=== PATIENT | male | born 2000 | race Two or more races ===

== ENCOUNTER 2020-10-31 10:24 | Emergency (ER) | payer OTHER, SELFPAY ==
[2020-10-31 10:49] VITALS: BP 142/86; PULSE 78; RESP 14; TEMP 36.7; O2SAT 100; BMI 22.0
[2020-10-31 12:11] LABS: Strep A Nucleic Acid Negative (Negative)
--- NOTE | 2020-10-31 12:40 | ED_ITS ---
HPI - General Adult General Chief complaint: Dental/Oral Stated complaint: mouth issue Time Seen by Provider: 10/31/20 10:59 Source: patient Mode of arrival: ambulatory History of Present Illness HPI narrative: 20-year-old male with past medical history of asthma presenting to the ED complaining of red bumps/lesions to throat/tongue x2-3 days. Reports pain with swallowing. Denies difficulty or inability to swallow, fever, chills, recent travel, new sexual partners, concern history of STIs, cough, recent travel Related Data Previous Rx's Medication Instructions Recorded amoxicillin-pot clavulanate 1 tab PO Q12H 7 Days #14 tab 10/31/20 [Augmentin] Allergies Allergy/AdvReac Type Severity Reaction Status Date / Time No Known Allergies Allergy Unverified 03/03/20 18:25 Review of Systems Review of Systems: Constitutional: No Weight loss, No Fever, No Chills ENT/Mouth: No Ear Pain, No Nasal Congestion, No Hoarseness,+ sore throat, No Rhinorrhea, No Swallowing Difficulty Cardiovascular: No Chest Pain, No SOB Respiratory: No Cough, No Sputum, No Wheezing Gastrointestinal: No Nausea, No Vomiting, No Diarrhea, No Abdominal pain Musculoskeletal: No joint pain, No Myalgias Skin: No Skin Lesions, No rash Neuro: No Weakness Yes all other systems are reviewed and are negative PMFSH Past Medical History Attestation statement: The following information was validated with the patient. Medical History (Updated 10/31/20 @ 12:41 by EMMETT Dave) Asthma Social History Social History Smoked in Last 30 Days: No Use of substances other than those prescribed or required for medical reasons: Yes Substance Use Type: Marijuana Substance Use Frequency: Weekly Advance Directives: No Advance Directives Information Provided: No Physical Exam Vital Signs: Vital Signs: Last Vital Signs Temp 98.1 F 10/31/20 10:49 Pulse 78 10/31/20 10:49 Resp 14 10/31/20 10:49 BP 142/86 H 10/31/20 10:49 Pulse Ox 100 10/31/20 10:49 Body Mass Index 22.0 Const: General: cooperative, healthy appearing, comfortable and no acute distress Orientation/consciousness: patient oriented x3 Limitations: no limitations HENMT: Other: Multiple red lesions noted to hard palate and tongue c/w strawberry tongue. No tonsillar exudates. Uvula midline. Talking in complete sentences Head: Yes normal to inspection Ears: hearing grossly normal bilaterally and TM's normal bilaterally General nose exam: Normal external nose present Face and sinus: Yes normal facial exam Throat: Yes uvula midline Eyes: General: appearance normal, both eyes and all related structures EOM: EOMs intact bilaterally Neck: Neck: Yes normal visual inspection, Yes no lymphadenopathy and Yes no meningeal signs Resp: Effort & Inspection: normal respiratory effort, no grunting, not labored and no stridor Cardio: Rate: regular rate Heart sounds: S1 normal heart sound present and S2 normal heart sound present GI: Inspection: Yes normal to inspection Skin: Rashes: no rashes Wounds: no wounds Neuro: General: patient oriented x3 and no meningeal signs Gait exam (Nerissa ro): Normal gait present Extrem: General: Yes normal to inspection Medical Decision Making MDM Narrative Medical decision making narrative: On exam VSS, NAD/well appearing, afebrile. Oropharynx with multiple red lesions consistent with strawberry tongue or atypical strep pharyngitis or viral syndrome like Coxsackie or Kawasaki. Low concern for scarlet fever without fever. Unlikely herpes. Plan: COVID-19 testing, strep, herpes culture Lab Data Labs: Lab Results 10/31/20 10/31/20 Range/Units 11:36 12:43 Coronavirus (PCR) NEGATIVE (Negative) Influenza Type A (PCR) NEGATIVE (Negative) Influenza Type B (PCR) NEGATIVE (Negative) RSV RNA Qual (PCR) NEGATIVE (Negative) S. pyogenes GrpA TONY Negative (Negative) Discharge Plan Discharge Clinical Impression: Pharyngitis Qualifiers: Pharyngitis/tonsillitis etiology: unspecified etiology Qualified Code(s): J02.9 - Acute pharyngitis, unspecified Patient Disposition: Home, Self-Care Instructions: Pharyngitis (ED) Additional Instructions: Your rapid strep was negative, will however culture was sent will call you with positive cultures in a couple days You were swabbed for herpes, this culture takes a couple days come back as well, we will call you only for positive results You were tested for COVID-19/the flu/RSV today this result be back in a couple hours, I will call you with positive or negative results Augmentin is antibiotic, take as prescribed It is important that you follow-up with her primary care doctor Stay hydrated at home If symptoms persist or worsen, you have throat swelling, or pain is unbearable please return to the ED Prescriptions: New amoxicillin-pot clavulanate [Augmentin] 875-125 mg tablet 1 tab PO Q12H 7 Days Qty: 14 RF: 0 Referrals: Physician,None [Primary Care Provider] - 2 days Interventions: ED Discharge Assessment Last Done: 10/31/20 12:48 Discharge Date/Time: 10/31/20 12:48
[2020-10-31 13:48] LABS: Influenza A PCR NEGATIVE (Negative); Influenza B PCR NEGATIVE (Negative); Resp Syncy Virus RNA Qual PCR NEGATIVE (Negative); SARS COV2 PCR INHOUSE NEGATIVE (Negative)
== END 2020-10-31 12:48 | disposition home or self-care (01) ==
PROVIDERS: Physician Assistant; Emergency Provider Emergency Medicine
DX: J20.9 Acute bronchitis, unspecified (principal); Z20.2 Contact with and (suspected) exposure to infections with a predominantly sexual mode of transmission; Z20.822 Contact with and (suspected) exposure to COVID-19
CPT/HCPCS: 0241U; 36415; 87255; 87651; 99283

== ENCOUNTER 2021-01-22 11:06 | Emergency (ER) | payer OTHER, SELFPAY ==
--- NOTE | ~2021-01-22 | CT_ITS ---
EXAM: CT HEAD WITHOUT CONTRAST CT CERVICAL SPINE WITHOUT CONTRAST CT FACIAL BONES WITHOUT CONTRAST INDICATION: Reason for Exam right eye pain s/p head trauma TECHNIQUE: A noncontrast CT scan was performed from the skull base to the vertex. A noncontrast CT scan of the cervical spine was performed from the base of the skull through T1. A noncontrast CT scan was performed through the maxillofacial region. Coronal and sagittal reformats were obtained at the acquisition workstation. Dose length product is 1575 mGy-cm. COMPARISON: None FINDINGS: Head: No evidence of acute intracranial hemorrhage or extra-axial fluid collection. No evidence of mass lesion, mass effect or midline shift. No acute territorial infarction. Ventricles are symmetric in configuration and normal in size. The basal cisterns are patent. The calvarium is intact. Limited views of the paranasal sinuses are unremarkable. Mastoid air cells are well aerated and middle ear cavities are clear. Cervical Spine: Slight reversal of cervical lordosis, likely due to immobilization collar and/or muscular spasm. Cervical vertebral bodies are normal in height and alignment. Intervertebral disc spaces are preserved. Facet joints are anatomically aligned bilaterally. Spinous processes are intact and well aligned. The atlantodens articulation is unremarkable. The lateral masses of C1 and C2 are well aligned. There is incomplete atlantooccipital assimilation. The dens process is intact. No prevertebral soft tissue swelling. No bulky cervical adenopathy. Limited views of the thyroid gland are unremarkable. Facial bones: No facial fractures are identified. The paranasal sinuses are well aerated. No mastoid air cell effusions. Middle ear cavities are clear. Orbits are unremarkable. Right nasal septal deviation. Dental braces. CT/CT cervical spine wo con IMPRESSION: 1. No evidence of acute intracranial abnormality. 2. No evidence of cervical spinal fracture. 3. Anatomical variation with incomplete atlantooccipital simulation. 4. No facial fractures.
[2021-01-22 11:38] VITALS: BP 143/77; PULSE 87; RESP 16; TEMP 36.6; O2SAT 99; BMI 25.8
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
[2021-01-22 13:10] VITALS: BP 133/77; PULSE 80; TEMP 36.8; O2SAT 98
[2021-01-22] MEDS: Acetaminophen 325 MG TABLET 650 MG PO (13:16)
[2021-01-22 15:32] VITALS: BP 149/91; PULSE 73; RESP 20; TEMP 36.4; O2SAT 100
== END 2021-01-22 15:43 | disposition home or self-care (01) ==
PROVIDERS: Emergency Provider Emergency Medicine Emergency Medical Services
DX: S00.03XA Contusion of scalp, initial encounter (principal); S00.81XA Abrasion of other part of head, initial encounter; W22.09XA Striking against other stationary object, initial encounter; Y93.89 Activity, other specified; Y92.59 Other trade areas as the place of occurrence of the external cause; Y99.0 Civilian activity done for income or pay; S06.0X0A Concussion without loss of consciousness, initial encounter; S00.11XA Contusion of right eyelid and periocular area, initial encounter; V43.62XA Car passenger injured in collision with other type car in traffic accident, initial encounter; F17.210 Nicotine dependence, cigarettes, uncomplicated; Y92.414 Local residential or business street as the place of occurrence of the external cause; Y99.9 Unspecified external cause status
CPT/HCPCS: 70450; 70486; 72125; 99284

== ENCOUNTER 2021-02-03 07:56 | Emergency (ER) | payer OTHER, SELFPAY ==
[2021-02-03 08:52] VITALS: BP 147/97; PULSE 94; RESP 16; TEMP 37.1; O2SAT 98; BMI 25.0
--- NOTE | 2021-02-03 10:16 | ED_ITS ---
HPI - General Adult General Chief complaint: Headache Stated complaint: headache, nose bleed Time Seen by Provider: 02/03/21 09:33 Source: patient Mode of arrival: ambulatory Limitations: no limitations History of Present Illness HPI narrative: Patient presents to ED for headache and nose bleed. Patient states headache and nose bleed occurred while lifting and extremily heavy box on his own. Patient states nose bleed resolved and just have some mild headache. patient denies gum swelling, bleeding from ear, bleeding from rectum/penis, vomitting blood, or swelling in joints. Patient states he was bleeding from r ight nares. Related Data Previous Rx's Medication Instructions Recorded amoxicillin 875 mg-potassium 1 tab PO Q12H 7 Days #14 tab 10/31/20 clavulanate 125 mg tablet (Augmentin) Allergies Allergy/AdvReac Type Severity Reaction Status Date / Time No Known Allergies Allergy Unverified 03/03/20 18:25 Review of Systems Constitutional: Constitutional: Reports as per HPI, Reports no additional c onstitutional complaints and Reports headache(s) Eyes: Eyes: Reports as per HPI and Reports no additional eye complaints ENT: Reports system reviewed and no additional complaints, except as documented, Reports as per HPI and Reports headache(s) Comments: nose bleed Cardiovascular: Cardiovascular: Reports as per HPI and Reports no additional cardiovascular complaints Respiratory: Respiratory: Reports as per HPI and Reports no additional respiratory complaints Gastrointestinal: Gastrointestinal: Reports as per HPI and Reports no additional gastrointestinal complaints Musculoskeletal: Musculoskeletal: Reports no additional musculoskeletal complaints and Reports as per HPI Neurologic: Reports system reviewed and no additional complaints, except as documented, Reports as per HPI and Reports headache(s) Psychiatric: Psychiatric: Reports no additional psychiatric complaints and Reports as per HPI [facility] Past Medical History Medical History (Updated 02/03/21 @ 11:19 by EMMETT Richards) Asthma Social History Social History Alcohol intake: never Patient Tobacco Use Status: Current someday Tobacco user Substance Use Type: Marijuana Advance Directives: No Advance Directives Information Provided: No Physical Exam Vital Signs: Vital Signs: Last Vital Signs Temp 98.8 F 02/03/21 08:52 Pulse 78 02/03/21 11:20 Resp 18 02/03/21 11:20 BP 142/82 H 02/03/21 11:20 Pulse Ox 98 02/03/21 11:20 Body Mass Index 25.0 Const: General: cooperative, healthy appearing, comfortable, no acute distress, well developed, alert, awake and Physically active Orientation/consciousness: patient oriented x3 HENMT: Other: Nares negative for blood. Head: Yes normal to inspection, Yes No palpable skull fracture present, Yes normocephalic and Yes atraumatic General nose exam: Normal external nose present and Normal nares present Eyes: General: appearance normal, both eyes and all related structures Neck: Neck: Yes normal visual inspection, Yes full ROM, Yes no lymphadenopathy, Yes no meningeal signs, Yes trachea midline, Yes supple and No tender Chest: Chest palpation & inspection: normal inspection of the chest and normal palpation of entire chest wall Resp: Effort & Inspection: normal respiratory effort and able to speak in complete sentences Auscultation: clear to auscultation bilaterally Cardio: Jugular venous distension: no JVD Heart sounds: S1 normal heart sound present and S2 normal heart sound present GI: Inspection: Yes normal to inspection and No abdominal wall ecchymosis Palpation (GI): Soft to palpation, not firm, nontender, no guarding and not rigid : General: No CVA tenderness and Yes no CVA tenderness Back/Spine/Pelvis: Back: no CVA tenderness, No CVA tenderness and No back tenderness Skin: General skin exam: no rashes or lesions noted and elasticity normal Neuro: General: patient oriented x3, gait normal, no meningeal signs and CN's II-XI intact bilaterally Cranial nerves: Yes CN's II-XII intact bilaterally Extrem: General: Yes normal to inspection, Yes full ROM and No capillary refill normal Psych: Appearance: grossly normal, well kempt and not disheveled Course Course Course Narrative: Patient present not having any nose bleed. Patient will be given Motrin and Reglan for headache. Nose bleeding and headache likely from straining trying and lifting heavy box. No present indication for any nose rocket. Reevaluation(s) Reevaluation #1: Patient did not have any nosebleed in the ED. Headache resolved after meds. Patient will be discharged Time: 11:17 Medical Decision Making MDM Narrative Medical decision making narrative: Epistaxis. Resolved headache Discharge Plan Discharge Clinical Impression: Epistaxis Patient Disposition: Home, Self-Care Instructions: Nosebleed (ED), Acute Headache (ED) Additional Instructions: Return to the ED for any nosebleed, bleeding from gums, bleeding from any o rifice, abdominal pain, blood in stool, vomiting blood, fever, chills, shortness of breath, neck stiffness, severe headache, or any other concerning symptoms. Tylenol [id number] Motrin can be taken for headache. Please follow up with PCP. Prescriptions: No Action amoxicillin-pot clavulanate [Augmentin] 875-125 mg tablet 1 tab PO Q12H 7 Days Qty: 14 RF: 0 Stand Alone Forms: Work/School Release Interventions: ED Discharge Assessment Last Done: 02/03/21 11:31 Discharge Date/Time: 02/03/21 11:32 Print Language: Nepali
[2021-02-03] MEDS: Metoclopramide HCl 10 MG TABLET PO (10:21)
[2021-02-03] MEDS: Ibuprofen 800 MG TABLET PO (10:21)
--- NOTE | 2021-02-03 10:25 | PC.NURSE ---
Pt seen and evaluated by PA. Pt medicated for headache. Nose bleed had subsided prior to arrival.
[2021-02-03 11:20] VITALS: BP 142/82; PULSE 78; RESP 18; O2SAT 98
--- NOTE | 2021-02-03 11:25 | PC.NURSE ---
Pt educated on importance of establishing with PCP for continued eval of BP. He states that his headache has significantly improved with the medication.
--- NOTE | 2021-02-03 11:30 | PC.NURSE ---
Neuro assessment negative: Pupils WNL/equal/reactive. No weaknesses to any extremity. No facial drop. Communicating appropriately.
== END 2021-02-03 11:32 | disposition home or self-care (01) ==
PROVIDERS: Emergency Provider Internal Medicine
DX: R04.0 Epistaxis (principal); R51.9 Headache, unspecified; F17.210 Nicotine dependence, cigarettes, uncomplicated; F12.90 Cannabis use, unspecified, uncomplicated
CPT/HCPCS: 99283

== ENCOUNTER 2021-07-03 14:16 | Outpatient (REF) | payer OTHER, SELFPAY ==
[2021-07-03 15:30] LABS: COVID-19 Test Negative (Negative); IDNOW Serial# 16C4AD1C
== END 2021-07-03 14:17 | disposition home or self-care (01) ==
LOC: HO.LAB 14:16
PROVIDERS: Visit Provider Internal Medicine
DX: Z20.822 Contact with and (suspected) exposure to COVID-19 (principal)
CPT/HCPCS: 87635; C9803

== ENCOUNTER 2021-11-03 12:47 | Emergency (ER) | payer OTHER, SELFPAY ==
--- NOTE | ~2021-11-03 | XR_ITS ---
EXAMINATION: XR ANKLE, RIGHT CLINICAL INFORMATION: Pain and swelling post injury COMPARISON: None TECHNIQUE: AP, lateral, and mortise views of the right ankle. FINDINGS: The bones are normal. No fracture. Alignment is anatomic. Joint spaces are maintained. No joint effusion. Mild lateral soft tissue swelling. XR/XR ankle RT 2V IMPRESSION: No fracture or dislocation. Mild lateral soft tissue swelling.
[2021-11-03 12:56] VITALS: BP 135/73; PULSE 84; RESP 16; TEMP 36.1; O2SAT 97; BMI 26.6
--- NOTE | 2021-11-03 13:16 | ED_ITS ---
HPI - Extremity Injury (Lower) General Chief Complaint: Extremity Injury, Lower Stated Complaint: R ankle pain/work inj Time Seen by Provider: 11/03/21 13:15 Source: patient Mode of arrival: ambulatory Limitations: no limitations History of Present Illness HPI Narrative: 21 yo male presents to the ER for evaluation of a right ankle injury while at work today. He reports his foot got stuck between two wooden pallets. He reports twisting the ankle on having media pain and swelling. He has been able to ambulate but with discomfort. He works at [employer]. He has not taken any medications for the pain as of yet. Denies any numbness, tingling, weakness. MD complaint: ankle injury Onset (ago): hour(s) Injury: Right: ankle Type of Injury: blunt and inversion Place: work Severity: moderate Severity scale (1-10): 6 Relieving factors: cold therapy, immobilization and rest Exacerbating factors: weight bearing, movement and palpation Context: direct blow Associated symptoms: swelling and able to partially bear weight Other symptoms: none Treatments prior to arrival: cold therapy Related Data Previous Rx's Medication Instructions Recorded amoxicillin 875 mg-potassium 1 tab PO Q12H 7 Days #14 tab 10/31/20 clavulanate 125 mg tablet (Augmentin) ibuprofen 600 mg tablet 600 mg PO Q8H PRN #14 tab 11/03/21 Allergies Allergy/AdvReac Type Severity Reaction Status Date / Time No Known Allergies Allergy Verified 11/03/21 12:57 Review of Systems Review of Systems: Constitutional: No Fever, No Chills Cardiovascular: No Chest Pain, No SOB Gastrointestinal: No Nausea, No Vomiting Musculoskeletal: No joint pain, + Myalgias Skin: No Skin Lesions, No rash Neuro: No Weakness, No Numbness Psych: No Anxiety/Panic Heme/Lymph: + Bruising PMFSH Past Medical History Medical History (Updated 11/03/21 @ 13:47 by EMMETT Wood) Asthma Social History Social History Alcohol intake: never Patient Tobacco Use Status: Current someday Tobacco user Substance Use Type: Marijuana Advance Directives: No Advance Directives Information Provided: No Physical Exam Vital Signs: Vital Signs: Last Vital Signs Temp 97 F 11/03/21 12:56 Pulse 84 11/03/21 12:56 Resp 16 11/03/21 12:56 BP 135/73 11/03/21 12:56 Pulse Ox 97 11/03/21 12:56 BMI result Body Mass Index 26.6 Appearance: Alert. Oriented X3. No acute distress. HEENT: normal inspection CVS: Normal heart rate and rhythm. Pulses normal. Respiratory: No respiratory distress. Skin: Skin warm and dry. Normal skin color. Normal skin turgor. No rashes. Extremities: Right ankle with moderate lateral swelling, early ecchymotic changes distally, normal range of motion of the ankle with pain on plantar flexion. No point tenderness. No gross deformity. Foot is warm and well perfused, neurovascularly intact distally Neuro: Oriented X 3. Grossly normal, nonfocal, gait not tested due to pain. Course Course Course Narrative: 21-year-old male presents to the ER for evaluation of right ankle pain and swelling after getting it pinned between to wooden pallets at work and twisting it. He has been able to bear weight but with pain and discomfort. X-ray today does not show any acute fractures dislocations. Will treat for acute sprain. Work note provided per request. Stable for DC home with Eliel wrap, crutches, NSAID, supportive care. Discharge Plan Discharge Clinical Impression: Ankle sprain and strain Patient Disposition: Home, Self-Care Instructions: Ankle Sprain (DC) Additional Instructions: Your x-ray today was normal. Rest your ankle and elevate your foot when possible. Recommend ELIEL wrap for support and compression. Use ice several times per day for the next 48 hours. You may bear weight as tolerated. If pain is too severe, use crutches until better. Take Motrin and/or Tylenol as needed for pain. Follow up with your doctor as needed. Prescriptions: New ibuprofen 600 mg tablet 600 mg PO Q8H PRN (Reason: pain) Qty: 14 0RF No Action amoxicillin-pot clavulanate [Augmentin] 875-125 mg tablet 1 tab PO Q12H 7 Days Qty: 14 0RF Referrals: [facility] [Provider Group] (f/u ankle sprain) Stand Alone Forms: Work/School Release Interventions: ED Discharge Assessment Last Done: 11/03/21 14:13 Discharge Date/Time: 11/03/21 14:14
== END 2021-11-03 14:14 | disposition home or self-care (01) ==
PROVIDERS: Emergency Provider Emergency Medicine Emergency Medical Services
DX: S93.401A Sprain of unspecified ligament of right ankle, initial encounter (principal); S96.911A Strain of unspecified muscle and tendon at ankle and foot level, right foot, initial encounter; J45.909 Unspecified asthma, uncomplicated; X50.1XXA Overexertion from prolonged static or awkward postures, initial encounter; Y93.9 Activity, unspecified; Y92.9 Unspecified place or not applicable; Y99.0 Civilian activity done for income or pay
CPT/HCPCS: 73600; 99282; 99283